=== PATIENT | female | born 1985 | race Caucasian/White ===

== ENCOUNTER 2016-09-14 23:55 | Inpatient (IN) | payer OTHER ==
[~2016-09-14] VITALS: Ht 165.1 cm; Wt 111.1 kg
[~2016-09-14 23:55] MED LIST: DOCU-41 PO; HYDR-4003 PO; IBUP-1827 PO
[2016-09-15] MEDS: Lactated Ringer's 1,000 ML IV SCH ×2 (03:30→12:24)
[2016-09-15] MEDS ORDERED: Lactated Ringer's 1,000 ML IV PRN (11:28)
[2016-09-15] MEDS ORDERED: Hemorrhage Kit, Post Partum XX ONE (11:30)
[2016-09-15] MEDS ORDERED: Oxytocin 30 Units/500 mL LR 30 UNITS in IV Premix 1 EACH IV PRN ×2 (11:30→12:25)
[2016-09-15] MEDS ORDERED: Carboprost 250 mCg/mL Inj IM PRN (11:30)
[2016-09-15] MEDS ORDERED: Sodium Chloride LOK Flush 10 mL Syringe IVFLUSH PRN (11:30)
[2016-09-15] MEDS ORDERED: Oxytocin 10 Unit/mL Inj IM PRN (11:30)
[2016-09-15] MEDS ORDERED: Methylergonovine 0.2 mg/mL Inj IM PRN (11:30)
[2016-09-15] MEDS ORDERED: Misoprostol 25 mCg/0.25 Tablet VAGINAL ONE (11:40)
[2016-09-15] MEDS ORDERED: Misoprostol 25 mCg/0.25 Tablet VAGINAL SCH (12:25)
[2016-09-15 12:27] LABS: Mean Corpuscular Hemoglobin 30.1 pg (27.0-35.0); Mean Corpuscular Volume 91.2 fL (81-100)
--- NOTE | 2016-09-15 20:12 | PCM.HPOB ---
Subjective Date of Service: Sep 15, 2016 Referring Provider: Admitting Physician: Alexa Carter MD Primary Care Physician: Alexa Carter MD Attending Physician: Alexa Carter MD Chief Complaint at 39 weeks +2 days with suspected LGA baby History of Present History of Present Illness Patient is a very pleasant 31-year-old who has an EDC of 09/20/2016 based on an ultrasound done at 7-1/2 weeks gestational age. Patient has had regular care and her last 2 babies are very closely spaced. She was breast- feeding at the beginning of this with irregular cycles. Weight gain in the has been from 208 pounds up to 246 pounds. Blood pressures have been normal and GTT was also normal. Patient came in over the weekend with contractions every 3-6 minutes apart that persisted over several hours but she did not make any cervical change and was discharged home. She was brought in today for labor induction and at the start of the day was 2 cm and 25% effaced. Vertex was at -3 station. She received Cytotec 25 g 1 dose and had regular contractions with this after several hours. She did thin out her cervix but over the last couple of hours, the contractions have really spaced out and she is resting quite comfortably. Vaginal exam done at 2200 hrs. showed her to be 2-1/2 cm dilated 75% effaced and vertex at -2 station. Membranes were palpated. There is no bloody show and membranes are intact. Options reviewed with patient and her and we will start some Pitocin augmentation. GBS is negative and vital signs have been stable. Most recent ultrasound done on 09/10/2016 showed a normal baby boy at 64th percentile with PATRICE of 15.5 cm. Interval growth was appropriate for gestational age of 38-1/2 weeks. Earlier ultrasounds had placed the baby at the 92nd percentile. Vaginal delivery is anticipated and mother would like epidural when in active labor. Anesthesia has been contacted regarding this. OB History: (3), Para (0), Term (2), Pre-term (0), ( 0), Living (2) Obstetrical Complications: None Past Medical History Obstetrical History: 1. Her first baby was born 08/15/2011 at 37 weeks and 5 days. She has spontaneous rupture of membranes and prolonged latent stage of labor. Active labor was 11 hours and she pushed for 1-1/2 hours. She went onto spontaneous vaginal delivery of a liveborn female weighing 8 lbs. 2 oz. She did have an epidural. and baby were otherwise normal. " Eren: 2. Her second baby was born 06/06/2015 at 40-1/2 weeks gestational age with less than 5 hours of labor. She had spontaneous vaginal delivery of live born female infant with BW 3877 grams, and did have an epidural with delivery. and baby were healthy. "Maurice" 3. This is her third and current . Gynecologic History: Patient has had previous abnormal Pap smear that was LGSIL and positive HPV. Colposcopy showed mild dysplasia. She had chlamydia years ago which was treated and follow-up testing negative. Medical History: She has had mild intermittent asthma with seasonal allergies causing hayfever. She had obesity with intentional 50 pound weight loss in [id number] by improving her eating and exercise. She had a right middle finger injury in her teens treated with open reduction internal fixation and pinning. She has had history of depression and anxiety with impulsive actions in her teens but none for many years. She has had an occasional urinary tract infection. Surgical History: Right middle finger injury in teens with ORIF and pins Social History: Patient is has some college education and is a jlyo-sh-etre mom. They have a combined family with 5 children between them and this baby will be the sixth child. Hx Tobacco Use: No Hx Alcohol Use: No Hx Substance Use: No Past Family History Living Arrangement: with Family Genetic Screening/Counseling Genetic Screening/Counseling: Negative Baby father-had child w defect: No Review of Systems Constitutional: Y: Dizziness, Fever Eyes: Denies: Blurred Vision, Pain, Redness, Vision Changes ENT: Denies: Dental Problems, Nasal Congestion, Ulcers/Sores in Mouth Cardiovascular: Denies: Chest Pain, Edema Respiratory: Denies: Cough, SOB with Exertion, Wheezing Gastrointestinal: Denies: Abdominal Pain, Constipation, Heartburn, Nausea, Vomiting Genitourinary: Denies: Dysuria Musculoskeletal: Denies: Redness Skin/Breasts: Denies: Discharge Skin: Denies: Lesions, Rash Neurological: Denies: Change in Speech, Dizziness Psychologic: Denies: Anxious, Depression Hematologic: Denies: Adenopathy Medications Home medications Patient is on vitamins at home and uses occasional albuterol Allergy Coded Allergies: Penicillins (Verified Allergy, Severe, 08/15/11) Sulfa (Sulfonamide Antibiotics) (Verified Allergy, Severe, 08/15/11) amoxicillin (Verified Allergy, Severe, 08/15/11) cephalexin (Verified Allergy, Severe, 08/15/11) Exam Vital Signs Vital signs reviewed and are stable. Blood pressure was 115/76 heart rate 72, temperature afebrile Constitutional: Well-developed, Well-nourished HEENT: PERRLA, EOMI, Mucous Membr Moist/Waka Lungs: Clear to Auscultation, Clear to Percussion, Normal Air Movement Heart: Regular Rate/Rhythm, Normal S1, Normal S2, No Murmurs/Rubs/Gallops Abdomen: Gravid, Normal bowel sounds, Soft, No tenderness Lymphatic: Normal: Neck Palpation of Nodes Extremities: Pulses Palpable x4, Warm, No Edema Neurological/Psychiatric: Alert, Oriented X3, Cooperative, No Acute Distress Neuro: Grossly Neurologically Intact Labs/Diagnostics Labs Her blood type is O+ with no abnormal antibodies, varicella is immune, rubella is immune. RPR was nonreactive. Urine culture was negative. Hep B surface antigen was negative, and HIV was negative. Hepatitis C was less than 0.1. HSV types 1 and 2 are both negative. TSH was normal at 0.77. Pap smear was negative and HPV testing was negative. GC chlamydia was negative. One hour GTT was 160, but her 3 hour showed fasting blood sugar 101, 1 hour 175, 2 are 146, and 3 hour of 102. A1c was 5.6%. Antibody screen was negative. GBS screen was negative. Maternal Blood Type: O Hx Rho(D) Immune Globulin: No Antibody Screen: negative Group B Strep Results: Negative Previous Infant with GBS: No Rubella: Immune Lab History: Positive for: Hx Chicken Pox, Negative for: Hx Gonorrhea, Hx HIV, Hx Herpes, Hx Syphilis OB Intrapartum Assessment/Plan Assessment 31-year-old G 3 P2 at 39 weeks +2 days with suspected LGA . She was admitted earlier today for labor induction and Pitocin will be started this evening. Cervix is 2.5 cm dilated and 75% effaced with vertex presentation at - 2 station. She would like epidural once active. Vaginal delivery is anticipated and vital signs are stable. heart rate is reactive with baseline in the 140s with good iufh-fm-bnts variability and good accelerations. There are occasional brief variable decelerations to 120s lasting less than 10 seconds. Problems: (1) with 39 completed weeks gestation Status: Acute ICD Code: Z3A.39 (2) LGA (large for gestational age) fetus affecting mother, antepartum Qualifiers: Fetus number: single or unspecified fetus Trimester: third trimester Qualified Code: O36.63X0 - Maternal care for excessive growth, third trimester, not applicable or unspecified Status: Acute ICD Code: O36.60X0 Pain Evaluation: Adequate Pain Control Alexa Carter MD Sep 15, 2016 20:12
[2016-09-16] MEDS ORDERED: fentaNYL 2 mCg/mL-Bupivicaine 0.125% 100 mL Premix EPIDURAL ONE (02:41)
[2016-09-16] MEDS ORDERED: Ondansetron 2 mg/mL 2 mL Inj IVPUSH PRN (02:45)
[2016-09-16] MEDS ORDERED: fentaNYL 2 mCg/mL-Bupiv 0.125% 100 ML EPIDURAL SCH (02:45)
[2016-09-16] MEDS ORDERED: Lactated Ringer's 500 ML IV ONE (02:45)
[2016-09-16] MEDS ORDERED: EPHEDrine Sulfate 50 mg/mL Inj IVPUSH PRN (02:45)
[2016-09-16] MEDS ORDERED: Lactated Ringer's 1,000 ML IV SCH ×2 (02:45→05:43)
[2016-09-16] MEDS ORDERED: Atropine 1 mg/10 mL (Code) Syringe IVPUSH PRN (02:45)
[2016-09-16] MEDS ORDERED: Phenylephrine/NS-PF 100 mCg/mL 5 mL Syringe IVPUSH PRN (02:45)
--- NOTE | 2016-09-16 02:48 | PCM.HPANE ---
Patient Data Surgeon Admitting Provider:Alexa Carter MD Attending Provider:Alexa Carter MD Primary Care Physician:Alexa Carter MD Other Provider:Peyman Webster Anesthesia Reason for Visit Induction INDUCTION Ht/WT & BMI Body Mass Index Allergies Coded Allergies: Penicillins (Verified Allergy, Severe, 08/15/11) Sulfa (Sulfonamide Antibiotics) (Verified Allergy, Severe, 08/15/11) amoxicillin (Verified Allergy, Severe, 08/15/11) cephalexin (Verified Allergy, Severe, 08/15/11) Past Anesthesia History Anesthesia History: Denies:: Abnormal Airway, Anesthesia Reactions, Difficult Intubation, Fam Anesthesia Reaction, Fam Malignant Hypertherm, Malignant Hyperthermia Diabetes History Hx Diabetes?: No MRSA MRSA: No Medications Hypertension Medication: No Home Meds Incl Beta Yoko: No Active Scripts Hydrocodone-Acetaminophen 5-325 mg 1 Each Tablet1 Tablet PO Q4H PRN For Pain # 45 TABLET Ref 0 Prov:Alexa Carter MD 06/07/15 Ibuprofen 600 Mg [id number] Mg PO Q8H PRN For Mild Pain #45 TABLET Ref 1 Prov:Alexa Carter MD 06/07/15 Docusate Sodium (Colace)100 Mg [id number] Mg PO BID #60 CAPSULE Ref 1 Prov:Alexa Carter MD 06/07/15 History History of ENT Problems?: No HEENT History: Denies:: Abnormal Airway Cataracts Difficult Intubation Dysphagia Glaucoma Hearing Problem Sinus Problem TMJ Denture Type: None Teeth Condition: Within Normal Limits Hx of Heart Problems?: No Cardiovascular History: Denies:: AICD Abdominal Aortic Aneurism Atrial Fibrillation Cardiac Surgery Chest Pain Congestive Heart Failure Coronary Artery Disease Edema Heart Murmur Hypertension Irregular Heartbeat Pacemaker Peripheral Vascular Rheumatic Fever Thrombophlebitis Valvular Heart Disease Hx of Respiratory Problem?: Yes Respiratory History: Positive for:: Asthma Denies:: COPD Chest Surgery Cough Dyspnea Emphysema Hemoptysis Oxygen Administration Pneumonia Pulmonary Embolism Tuberculosis Use of C-PAP Machine Use of Inhalers / NEBS Hx Neurologic Problems?: No Hx of GI Problems?: No Hx of Problems?: No Female Hx: Positive for:: Currently Hx Musculoskeletal Problems?: No Hx Surgeries?: No Hx Diabetes: No Hx Alcohol Use: NoHx Substance Use: No Smoking Status: Former Smoker Stop/Bang Treated for Sleep Apnea?: No Do You Have a CPAP Machine?: No MAYE Risk Assessment: Low Risk, <3 Yes Risk Assessment Category Category 1A: Patient has history of documented sleep apnea, and HAS NOT received any narcotic, sedative or anesthesia administration during this stay. Category 1B: Patient has history of documented sleep apnea, and HAS received any narcotic , sedative or anesthesia administration during this stay Category 2: Patient has SUSPECTED Obstructive Sleep Apnea, and HAS received any narcotic , sedative or anesthesia administration during this stay. Category 3: Patient has SUSPECTED Obstructive Sleep Apnea and HAS NOT received narcotic, sedative or anesthesia administration during this stay. Category 4: Outpatient in Procedural Areas with known sleep apnea or who screen positive for High Risk via the STOP/BANG questionnaire. Exam Exam General Appearance: Alert, Oriented X3, Cooperative, No Acute Distress HEENT/AIRWAY: MP 2 Lungs: Clear to Auscultation, Clear to Percussion, Normal Air Movement Heart: Regular Rate/Rhythm, Normal S1, Normal S2, No Murmurs/Rubs/Gallops Meds/Labs/Diagnostics Admission Meds Current Medications Misoprostol (Cytotec) 25 mcg ONCE ONCE VAGINAL Last administered on 09/15/16t 11:48; Start 09/15/16 at 11:40; Stop 09/15/16 at 11:41; Status DC Labs Test 09/15/16 12:15 White Blood Count 8.3th/mm3 (3.8-10.1) Red Blood Count 3.76mil/mm3 (3.90-5.20) Hemoglobin 11.3g/dL (12.0-15.6) Hematocrit 34.3% (35.0-46.0) Mean Corpuscular Volume 91.2fL (81-100) Mean Corpuscular Hemoglobin 30.1pg (27.0-35.0) Mean Corpuscular Hemoglobin Concent 32.9% (32.0-37.0) Red Cell Distribution Width 14.0% (12.3-15.4) Platelet Count 268bil/L (150-400) Plan Impression Patient chart reviewed, patient interviewed and anesthestic plan with risks, benefits, and alternatives discussed, and informed consent obtained. ASA Physical Status: ASA2 Mod Systemic Disease Anesthetic Plan: Epidural Bene/Risks/Altern/Consents: Yes HP Complete Prior to Induction: Yes Bienvenido Nur MD Sep 16, 2016 02:48
[2016-09-16] MEDS ORDERED: fentaNYL-PF 50 mCg/mL 2 mL Inj ONE (03:01)
[2016-09-16] MEDS ORDERED: Witch Hazel-Glycerin Pads TOPICAL PRN (05:45)
[2016-09-16] MEDS ORDERED: Benzocaine (Dermoplast) 20% 60 Gm Spray TOPICAL PRN (05:45)
[2016-09-16] MEDS ORDERED: Methylergonovine 0.2 mg/mL Inj IM PRN (05:45)
[2016-09-16] MEDS ORDERED: Oxytocin 10 Unit/mL Inj IM PRN (05:45)
[2016-09-16] MEDS ORDERED: LANOlin HPA 7 Gm Ointment TOPICAL PRN (05:45)
[2016-09-16] MEDS ORDERED: Hemorrhage Kit, Post Partum XX ONE (05:45)
[2016-09-16] MEDS ORDERED: Carboprost 250 mCg/mL Inj IM PRN (05:45)
[2016-09-16] MEDS ORDERED: Oxytocin 30 Units/500 mL LR 30 UNITS in IV Premix 1 EACH IV PRN (05:45)
--- NOTE | 2016-09-16 05:56 | PCM.OBVAG ---
Vaginal Delivery Date of Service Sep 16, 2016 Pre Operative Diagnosis Pre Operative Diagnosis 1. at 39+3 weeks gestational age 2. Suspected LGA infant 3. Labor induction with cytotec and pitocin 4. Epidural analgesia 5. of LBM infant with compound presentation ( hand and arm came with the head) Post Operative Diagnosis Post Operative Diagnosis 1. at 39 +3 weeks gestational age 2. Labor induction with cytotec and pitocin 3. Epidural analgesia 4. of LBM with compound presentation ( hand and arm came with the head) Procedure Obstetical Procedure: Normal Spontaneous Vaginal Delivery Enamel Applier/Countersinker Balance Screw Hole Provider and Countersinker Balance Screw Hole: Dr. Alexa Carter Indication for Procedure Induction: Induction of labor, Pitocin augmentation, SROM, Progressed normally through labor Findings Obstetrical Findings: [place] (Male), Cord (3 Vessel), Presentation (OA), 1 minute (9), 5 minutes (9), Placenta (Intact/Normal), Perineal Laceration (1st degree) Analgesia/Medications Obstetrical Anesthesia: Epidural Procedure Details Procedure Details Patient is a very pleasant 31-year-old who has had regular care and came in yesterday for labor induction for suspected LGA . She received Cytotec 25 g per vagina 1 dose and Pitocin augmentation was started in the early evening. She went to a maximum of Pitocin 12 mU/m and was jayla. She went into the tub and this helped tremendously with labor progression. She had spontaneous rupture of membranes while in the bathtub for clear fluid. heart rate baseline was in the 140s with good ybcs-[id number]-tnxi variability and good accelerations throughout labor and delivery. She had normal bloody show. Epidural was placed at around 4 cm and she continued to progress well through labor. Her first stage of labor was approximately 2-1/2 hours, second stage of labor was 35 minutes, and third stage was 12 minutes. She went onto spontaneous vaginal delivery of a liveborn male infant. His hand and arm presented with the head but there was no true shoulder dystocia. Mother sustained a small first-degree perineal laceration which was repaired with 4-0 Vicryl to achieve good cosmesis hemostasis. Placenta delivered intact with a three-vessel cord and estimated blood loss at time of delivery was less than 200 mils. Delayed cord clamping was done and baby was placed onto the maternal abdomen and was crying right away. weight is still pending at time of this dictation but Apgars were 9 at 1 minute and 9 at 5 minutes. Mother is already breast-feeding and routine care is anticipated for both of them. Specimen Placenta for routine disposal. Blood Loss & Administration Estimated Blood Loss: 200 Blood Admin during procedure: No Post Procedure Plan Post delivery Condition: Mom stable Alexa Carter MD Sep 16, 2016 05:56
[2016-09-16] MEDS ORDERED: Sodium Chloride LOK Flush 10 mL Syringe IVFLUSH SCH (08:30)
[2016-09-16] MEDS: HYDROcodone-APAP 5-325 mg Tablet PO PRN ×2 (15:12→19:22)
--- NOTE | 2016-09-17 01:25 | PCM.ANEP1 ---
Post Anesthesia PACU Phase 1 Assessment Anesthetic Administered: Epidural Level of Alertness: Awake, talking JONES's with Equal Strength: Yes Pain: No Pain Scale Score: 3 Nausea or Vomiting: No CV Function & Hydration Stable: Yes Airway Device: Oxygen Delivery: Room Air Lungs: Clear to Auscultation, Clear to Percussion, Normal Air Movement Dermatome Level: Full Sensation PACU Phase 2 Assessment Complications: No Follow up Care: N/A Patient Instructions Provided: N/A Bhupendra Lincoln MD Sep 17, 2016 01:25
[2016-09-17 07:30] LABS: Mean Corpuscular Hemoglobin 29.7 pg (27.0-35.0); Mean Corpuscular Volume 93.4 fL (81-100)
--- NOTE | 2016-09-17 11:17 | PCM.DIOB ---
Lizett Merrill DO 09/17/16 1117: Obstetrical Disch Instruction Date of Service: Sep 17, 2016 Dates of Hospitalization Date of Hospital Admission Sep 15, 2016 at 10:27 Providers Admitting Physician: Alexa Carter MD Primary Care Physician: Alexa Carter MD Attending Physician: Alexa Carter MD Discharge Diagnosis Discharge Diagnosis 1. at 39=3 weeks gestational age 2. Labor induction with cytotec and pitocin 3. Epidural analgesia 4. of LBM infant with compound presentation (hand and arm came with the head ) Problems: (1) with 39 completed weeks gestation Status: Resolved ICD Code: Z3A.39 (2) LGA (large for gestational age) fetus affecting mother, antepartum Qualifiers: Fetus number: single or unspecified fetus Trimester: third trimester Qualified Code: O36.63X0 - Maternal care for excessive growth, third trimester, not applicable or unspecified Status: Resolved ICD Code: O36.60X0 Diet Discharge Diet: No restrictions Activity Discharge Activity-General: Pelvic Rest for 6 weeks, Try not to overdue, Be up and about, Balance rest and activity, No lifting >15 pounds for 2 weeks Dressing and Incisional Care Hygiene: May shower Additional Instructions Discharge Instructions 1. Take Ibuprofen, 600 mg by mouth up to four times a day as needed for pain. 2. If your pain is not relieved you can take Gilson, 5-325 mg every four hours as needed. 3. Please take iron supplement, Ferrous Sulfate, 325 mg daily with Vitamin C, 500 mg daily as well for one month. 4. Continue taking Colace, 100 mg daily as well to prevent constipation. Follow Up Plan Follow Up Plan Please follow up with Dr. Carter in 2 weeks. Follow-up Provider (F9): Alexa Carter MD Follow-up appointment: With Primary Care Provider Call your provider for: Fever or Chills, Shortness of breath, Heavy vaginal bleeding, Heavy bleeding, Epigastric pain, Excessive constipation, Vaginal discomfort, Red painful breasts Alexa Carter MD 09/17/16 1717: Obstetrical Disch Instruction Discharge Diagnosis Problems: (1) (spontaneous vaginal delivery) Status: Acute ICD Code: O80 (2) LGA (large for gestational age) fetus affecting mother, antepartum Qualifiers: Fetus number: single or unspecified fetus Trimester: third trimester Qualified Code: O36.63X0 - Maternal care for excessive growth, third trimester, not applicable or unspecified Status: Resolved ICD Code: O36.60X0 (3) with 39 completed weeks gestation Status: Resolved ICD Code: Z3A.39 Attending Statement I was personally involved in the care and management of this patient during her entire hospital stay, and agree with Dr. Merrill's assessment and plan of care. Both mom and babe are ready for discharge today and will follow up in my office. Lizett Merrill DO Sep 17, 2016 11:17 Alexa Carter MD Sep 17, 2016 17:17
[2016-09-17] MEDS ORDERED: HYDR-4003 PO (11:20)
[2016-09-17] MEDS ORDERED: DOCU-41 PO (11:21)
[2016-09-17] MEDS ORDERED: FERR-26 PO (11:23)
[2016-09-17] MEDS ORDERED: ASCO500W7 PO (11:25)
[2016-09-17] MEDS ORDERED: IBUP-1827 PO (11:26)
[2016-09-17 11:39] VITALS: BP 110/55; PULSE 77; RESP 20
--- NOTE | 2016-09-17 14:59 | PCM.DC.OB ---
Obstetrical Discharge Summary Date of Service Sep 17, 2016 Date of hospital admission Sep 15, 2016 at 10:27 Date of Discharge: Sep 17, 2016 Providers Admitting Physician: Radha Carter MD Primary Care Physician: Radha Carter MD Attending Physician: Radha Carter MD Diagnosis at Time of Discharge 1. at 39+3 weeks gestational age 2. Labor induction with cytotec and pitocin 3. Epidural analgesia 4. of LBM with compound presentation (hand and arm came with the head) 5. Perineal laceration, first degree Problems: (1) with 39 completed weeks gestation Status: Resolved ICD Code: Z3A.39 (2) LGA (large for gestational age) fetus affecting mother, antepartum Qualifiers: Fetus number: single or unspecified fetus Trimester: third trimester Qualified Code: O36.63X0 - Maternal care for excessive growth, third trimester, not applicable or unspecified Status: Resolved ICD Code: O36.60X0 (3) (spontaneous vaginal delivery) Status: Acute ICD Code: O80 Brief History and Physical: Patient is a very pleasant 31-year-old who has an EDC of 09/20/2016 based on an ultrasound done at 7-1/2 weeks gestational age. Patient has had regular care and her last 2 babies are very closely spaced. She was breast- feeding at the beginning of this with irregular cycles. Weight gain in the has been from 208 pounds up to 246 pounds. Blood pressures have been normal and GTT was also normal. Patient came in over the weekend with contractions every 3-6 minutes apart that persisted over several hours but she did not make any cervical change and was discharged home. She was brought in today for labor induction and at the start of the day was 2 cm and 25% effaced. Vertex was at -3 station. She received Cytotec 25 g 1 dose and had regular contractions with this after several hours. She did thin out her cervix but over the last couple of hours, the contractions have really spaced out and she is resting quite comfortably. Vaginal exam done at 2200 hrs. showed her to be 2-1/2 cm dilated 75% effaced and vertex at -2 station. Membranes were palpated. There is no bloody show and membranes are intact. Options reviewed with patient and her and we will start some Pitocin augmentation. GBS is negative and vital signs have been stable. Most recent ultrasound done on 09/10/2016 showed a normal baby boy at 64th percentile with PATRICE of 15.5 cm. Interval growth was appropriate for gestational age of 38-1/2 weeks. Earlier ultrasounds had placed the baby at the 92nd percentile. Vaginal delivery is anticipated and mother would like epidural when in active labor. Anesthesia has been contacted regarding this. Hospital Course: Patient is a very pleasant 31-year-old who has had regular care and came in on 09/15/16 for labor induction for suspected LGA infant. She received Cytotec 25 g per vagina 1 dose and Pitocin augmentation was started in the early evening. She went to a maximum of Pitocin 12 mU/m and was jayla. She went into the tub and this helped tremendously with labor progression. She had spontaneous rupture of membranes while in the bathtub for clear fluid. heart rate baseline was in the 140s with good grmo-yy-fcyc variability and good accelerations throughout labor and delivery. She had normal bloody show. Epidural was placed at around 4 cm and she continued to progress well through labor. Her first stage of labor was approximately 2-1/2 hours, second stage of labor was 35 minutes, and third stage was 12 minutes. She went onto spontaneous vaginal delivery of a liveborn male infant. His hand and arm presented with the head but there was no true shoulder dystocia. Mother sustained a small first-degree perineal laceration which was repaired with 4-0 Vicryl to achieve good cosmesis hemostasis. Placenta delivered intact with a three-vessel cord and estimated blood loss at time of delivery was less than 200 mils. Delayed cord clamping was done and baby was placed onto the maternal abdomen and was crying right away. weight was 3798 g and Apgars were 9 at 1 minute and 9 at 5 minutes. Mother was able to successfully breast- feed right away. On the day of discharge her vital signs were stable, she was ambulating without assistance, she was voiding and passing flatus without difficulties, she was able to tolerate oral intake without nausea and vomiting and her pain was well controlled. She denied being depressed. Both mother and baby were discharged home in a stable condition on 09/17/16. Ascorbic Acid/Ascorbate Sodium (Vitamin C 500 mg Wafer) 500 Mg Wafer 500 MG PO DAILY Prescribed by: SHREYAS MERRILL DO Docusate Sodium (Colace) 100 Mg Capsule 100 MG PO BID Prescribed by: RADHA CARTER MD Docusate Sodium (Colace) 100 Mg Capsule 100 MG PO DAILY PRN PRN For Constipation Prescribed by: SHREYAS MERRILL DO Ferrous Sulfate (Ferrousul) 325 Mg Tablet 325 MG PO DAILY Prescribed by: SHREYAS MERRILL DO Hydrocodone-Acetaminophen 5-325 mg (Hydrocodone-Acetaminophen 5-325 mg) 1 Each Tablet 1 TABLET PO Q4H PRN PRN For Pain Prescribed by: RADHA CARTER MD Hydrocodone-Acetaminophen 5-325 mg (Hydrocodone-Acetaminophen 5-325 mg) 1 Each Tablet 1 TABLET PO Q4H PRN PRN For Pain Prescribed by: SHREYAS MERRILL DO Ibuprofen (Ibuprofen) 600 Mg Tablet 800 MG PO Q8H PRN PRN For Mild Pain Prescribed by: RADHA CARTER MD Ibuprofen (Ibuprofen) 600 Mg Tablet 600 MG PO QID PRN PRN For Pain Prescribed by: SHREYAS MERRILL DO Disposition Home Follow-up plan Follow up with PCP in 2 weeks Discharge Diet: No restrictions Discharge Activity-General: Pelvic Rest for 6 weeks, Pelvic Rest, Be up and about, Balance rest and activity Patient instructions Follow up with Dr. Carter within 2 weeks. Shreyas Merrill DO Sep 17, 2016 14:59 Radha Carter MD Sep 17, 2016 17:19
== END 2016-09-17 12:31 | disposition home or self-care (01) | DRG 775 ==
LOC: FBC 09-15 10:27
PROVIDERS: ADMIT Family Medicine; ATTEND Family Medicine
PROC: 3E033VJ Introduction of Other Hormone into Peripheral Vein, Percutaneous Approach (ICD-10-PCS; 2016-09-15)
PROC: 3E0P7GC Introduction of Other Therapeutic Substance into Female Reproductive, Via Natural or Artificial Opening (ICD-10-PCS; 2016-09-15)
PROC: 10E0XZZ Delivery of Products of Conception, External Approach (ICD-10-PCS; principal; 2016-09-16)
PROC: 0HQ9XZZ Repair Perineum Skin, External Approach (ICD-10-PCS; 2016-09-16)
DX: O36.63X0 Maternal care for excessive fetal growth, third trimester, not applicable or unspecified (principal); Z3A.39 39 weeks gestation of pregnancy; Z37.0 Single live birth; O32.6XX0 Maternal care for compound presentation, not applicable or unspecified; O70.0 First degree perineal laceration during delivery